=== PATIENT | female | born 1950 | race Hispanic/Latino ===

== ENCOUNTER 2017-05-17 11:31 | Emergency (ER) | payer OTHER ==
[~2017-05-17] VITALS: Ht 154.9 cm; Wt 73.5 kg
[~2017-05-17 11:31] MED LIST: XANAX0.5 MG; ZOLPIDEM TARTRAT5 MG PO
[2017-05-17] MEDS ORDERED: HYDROCODONE/APAP 5MG-325MG TAB PO ONE (12:15)
[2017-05-17] MEDS ORDERED: ORPHENADRINE CITRATE 30 MG/ML VIAL IM ONE (12:15)
[2017-05-17] MEDS ORDERED: PROMETHAZINE HCL 25 MG TAB PO ONE (12:15)
[2017-05-17] MEDS ORDERED: KETOROLAC TROMETHAMINE 60 MG/2 ML VIAL IM ONE (12:15)
[2017-05-17] MEDS ORDERED: CYCLOBENZAPRINE5 MG PO (13:25)
[2017-05-17] MEDS ORDERED: TYLENOL WITH C1 EACH PO (13:25)
== END 2017-05-17 13:55 | disposition home or self-care (01) ==
LOC: ER 11:31
DX: M54.12 Radiculopathy, cervical region (principal); S16.1XXA Strain of muscle, fascia and tendon at neck level, initial encounter; I10 Essential (primary) hypertension; E11.9 Type 2 diabetes mellitus without complications; X58.XXXA Exposure to other specified factors, initial encounter
CPT/HCPCS: 96372; 99283; J1885; J2360

== ENCOUNTER → 2021-06-28 | Outpatient (CLI) | payer OTHER ==
[~2021-06-28] MED LIST changes: +ATORVASTATIN CA20 MG PO; +CIPRO500 MG PO; +CYCLOBENZAPRINE5 MG PO; +METFORMIN HCL500 MG PO; +TYLENOL WITH C1 EACH PO
== END ==
LOC: CT 08:24
PROVIDERS: ATTEND Internal Medicine
DX: G51.0 Bell's palsy (principal)
CPT/HCPCS: 70450; 72050

== ENCOUNTER → 2022-05-17 | Outpatient (CLI) | payer MEDICARE | LOC: MAMMO 05-02 09:24 | PROVIDERS: ATTEND Internal Medicine | DX: Z12.31 Encounter for screening mammogram for malignant neoplasm of breast (principal); M81.0 Age-related osteoporosis without current pathological fracture | CPT/HCPCS: 77067; 77080 ==